=== PATIENT | female | born 1970 | race Caucasian/White ===

== ENCOUNTER 2023-01-02 15:18 | Outpatient (RCR) | payer OTHER, SELFPAY ==
[2022-12-19 19:19] VITALS: BP 172/113; PULSE 85; RESP 18; TEMP 36.4; O2SAT 100
--- NOTE | 2022-12-19 19:27 | W.ED.CHARTNO ---
ED Chart Note Chart Note Details Date: 12/19/22 Details: Barbara Rasmussen had called regarding this patient with a feral cat bite. We did discuss the case and certainly rabies immunoglobulin and the rabies series is recommended. They do not have this in the clinic. Barbara will be treating the patient with Augmentin and tetanus in cleaning her wounds. Barbara is requesting our assistance for the rabies portion. Barbara did send a request for rabies immunoglobulin and the rabies series for this patient. I did subsequently put the orders in the computer. Patient is outpatient in the ED, was not seen as an ER patient
[2022-12-19] MEDS: RABIES IMMUNE GLOBULIN 150 UNIT/ML INJ 1545 UNIT INFILTRATI (19:52)
[2022-12-22 15:19] VITALS: BP 153/90; PULSE 91; RESP 18; TEMP 36.2; O2SAT 96
[2022-12-25 01:00] VITALS: BP 155/98; PULSE 68; RESP 18; TEMP 36.9; O2SAT 100
[2023-01-02 15:32] VITALS: BP 156/89; PULSE 75; RESP 16; TEMP 36.6; O2SAT 99
== END 2023-01-02 17:00 | disposition home or self-care (01) ==
PROVIDERS: Emergency Provider Family Medicine; PCP Obstetrics & Gynecology; Visit Provider Nurse Practitioner Family
DX: Z20.3 Contact with and (suspected) exposure to rabies (principal); Z23 Encounter for immunization
CPT/HCPCS: 80307; 90377; 90471; 90675